=== PATIENT | female | born 1955 | race Caucasian/White ===

== ENCOUNTER → 2018-03-09 08:57 | Outpatient (CLI) | payer OTHER, SELFPAY ==
--- NOTE | 2018-03-09 09:04 | XR_ITS ---
XR foot LT min 3V HISTORY: ITS.REASON: LEFT FOOT PAIN ORDERING PHYSICIAN: Anum Robertson PATIENT AGE: 62 years COMPARISON: None FINDINGS: No fracture or dislocation. No lytic or blastic change. There is normal mineralization.. The joint spaces are well-preserved. No significant degenerative/arthritic changes. No erosive changes evident. IMPRESSION: Negative, no acute finding
== END ==
PROVIDERS: PCP Nurse Practitioner; Visit Provider Nurse Practitioner
DX: M79.672 Pain in left foot (principal)
CPT/HCPCS: 73630

== ENCOUNTER 2021-06-29 17:13 | Emergency (ER) | payer OTHER, SELFPAY ==
[2021-06-29 17:49] VITALS: BP 144/77; PULSE 82; RESP 20; TEMP 36.9; O2SAT 96; BMI 30.7
--- NOTE | 2021-06-29 17:59 | HMH.EDUTC ---
[facility] – [place] Disposition Clinical Impression: Pneumonia Disposition: Home, Self-Care Condition on Discharge: Good Instructions: Pneumonia-Adult Additional Instructions: Drink plenty of fluids. Take tylenol or ibuprofen for pain or fever. Take the medications as directed. Follow up with your regular doctor. GO TO THE ER FOR ANY WORSENING SYMPTOMS Quarantine until you know the results of your covid-19 test. If it is positive, the health department should call you and give you further instructions about your length of Quarantine and other thing. The cough medication (promethazine dm) will make you drowsy, so don't drive or operate heavy machinery after taking it. Follow up closely with your primary care physician. If you have any worsening symptoms, please return to the er at once. Prescriptions: Promethazine/Dextromethorphan [Promethazine-Dm Syrup] 5 ml PO Q6HP PRN #240 syrup PRN Reason: Cough Transmission Status: Received by [facility] Amoxicillin [Amoxicillin 875MG Tab] 875 mg PO Q12H #20 tab Transmission Status: Received by [facility] methylPREDNISolone [Medrol] 4 mg PO DIRECTED 6 Days #21 tab.ds.pk Transmission Status: Received by [facility] Benzonatate [Tessalon Perle 100mg Cap] 100 mg PO TIDP PRN #30 cap PRN Reason: Cough Transmission Status: Received by [facility] Azithromycin [Z-Mark 250mg Tab*] 250 mg PO UD DOSE PK #6 tab Transmission Status: Received by [facility] Referrals: Avery Finney MD [Primary Care Provider] - Time of Disposition: 19:32 Medical Decision Making - Medical Records Medical records reviewed: No: I reviewed the patient's medical records. - Brody Inquiry Pt receiving controlled substance: No Vital Signs: 06/29/21 17:49 06/29/21 18:56 Temperature 98.5 F 98.7 F Temperature Source Oral Pulse Rate 78 Pulse Rate [Left] 82 Respiratory Rate 20 22 Blood Pressure 146/83 H Blood Pressure [Right Arm] 144/77 H Blood Pressure Mean [Right Arm] 99 02 Sat by Pulse Oximetry 96 - Lab Data Lab results reviewed: Yes: I reviewed the patient's lab results. Lab Results 06/29/21 18:14: Strep Scn Rapid [facility] Negative Orders (Tests/Meds): ED MEDICATIONS Discontinued Medications Generic Name Dose Route Start Last Admin Trade Name Rudi PRN Reason Stop Dose Admin Ceftriaxone Sodium 1 gm 06/29/21 18:48 06/29/21 18:55 Ceftriaxone 1gm Vial IM 06/29/21 18:49 1 gm ONCE ONE Administration Lidocaine HCl 0 ml 06/29/21 18:48 06/29/21 18:55 Lidocaine 1% 5ml Pf Vial IM 06/29/21 18:49 2.5 ml ONCE ONE Administration ORDERS Category Date Time Status Covid-19 Nasal PCR ([facility]) Routine Lab 06/29/21 17:45 Received Strep Screen Confirmation Stat Micro 06/29/21 18:14 Received [facility] [place] HPI - General Stated complaint: not feeling good Time Seen by Provider: 06/29/21 18:00 Mode of Arrival: Ambulatory Source of Information: Patient Limitations: No Limitations Description of Symptoms (Recalled from Triage Doc. by RN): PT C/O LOSS OF TASTE AND SMELL, FEVER COUGH AND FATIGUE HEENT Symptoms (Recalled from RN notes): Yes (LOSS OF TASTE/SMELL) Resp Symptoms (Recalled from RN notes): Yes (COUGH) Skin Symptoms (Recalled from RN notes): No MS Symptoms (Recalled from RN notes): No Functional Status (Recalled from RN notes): FEVER AND FATIGUE - History of Present Illness Provider Complaint: She states that for the past week she has been feeling bad. She has had a cough, loss of sense of smell and low grade fever. - Related Data Previous Rx's Medication Instructions Recorded Amoxicillin [Amoxicillin 875MG 875 mg PO Q12H #20 tab 06/29/21 Tab] Azithromycin [Z-Mark 250mg Tab*] 250 mg PO UD DOSE PK #6 tab 06/29/21 Benzonatate [Tessalon Perle 100mg 100 mg PO TIDP PRN #30 cap 06/29/21 Cap] Promethazine/Dextromethorphan 5 ml PO Q6HP PRN #240 syrup 06/29/21 [Promethazine-Dm Syrup] methylPREDN
--- NOTE | 2021-06-29 18:10 | XR_ITS ---
PROCEDURE INFORMATION: Exam: XR Chest Exam date and time: 06/29/2021 6:10 PM Age: 65 years old Clinical indication: Patient HX: Cough, fever TECHNIQUE: Imaging protocol: XR of the chest. Views: 2 views. COMPARISON: No relevant prior studies available. FINDINGS: Lungs: Bilateral scattered airspace disease concerning for pneumonia. Pleural spaces: Unremarkable. No pleural effusion. No pneumothorax. Heart/Mediastinum: Unremarkable. No cardiomegaly. Bones/joints: Unremarkable. IMPRESSION: Moderate bilateral pneumonia.
[2021-06-29 18:56] VITALS: BP 146/83; PULSE 78; RESP 22; TEMP 37.1
[2021-06-29 20:14] LABS: UTC Strep Screen (Rapid) Negative (Negative)
--- NOTE | 2021-06-30 12:31 | PC.NURSE ---
PATIENT NOTIFIED OF POSITIVE COVID TEST AT THIS TIME
== END 2021-06-29 19:42 | disposition home or self-care (01) ==
PROVIDERS: Emergency Provider Nurse Practitioner Family; PCP Family Medicine
DX: J12.82 Pneumonia due to coronavirus disease 2019 (principal)
CPT/HCPCS: 71046; 87880; 96372; 99203; G0463; U0003

== ENCOUNTER 2021-09-23 07:59 | Day surgery (SDC) | payer OTHER, SELFPAY ==
[2021-09-23] VITALS (7 sets, daily range): BP systolic 147–163; BP diastolic 67–84; PULSE 55–62; RESP 16; TEMP 36.2–36.5; O2SAT 97–100; BMI 30.2
== END 2021-09-23 10:45 | disposition home or self-care (01) ==
LOC: OR 08:00
PROVIDERS: PCP Family Medicine; Visit Provider Ophthalmology
PROC: (CPT 66984; principal; 2021-09-23 10:00)
DX: H25.812 Combined forms of age-related cataract, left eye (principal); H02.831 Dermatochalasis of right upper eyelid; H02.834 Dermatochalasis of left upper eyelid; I10 Essential (primary) hypertension; Z79.899 Other long term (current) drug therapy
CPT/HCPCS: 66984; V2632

== ENCOUNTER → 2021-12-08 10:47 | Outpatient (CLI) | payer OTHER, SELFPAY | PROVIDERS: PCP Family Medicine; Visit Provider Ophthalmology | DX: Z01.812 Encounter for preprocedural laboratory examination (principal); U07.1 COVID-19 | CPT/HCPCS: C9803; U0003; U0005 ==

== ENCOUNTER 2022-01-06 08:48 | Day surgery (SDC) | payer SELFPAY ==
[2021-12-31 10:20] VITALS: BMI 30.7
[2022-01-06 09:56] VITALS: BP 180/74; PULSE 63; RESP 18; TEMP 36.6; O2SAT 98
[2022-01-06 11:51] VITALS: BP 139/75; PULSE 58; RESP 18; O2SAT 99
[2022-01-06 11:56] VITALS: BP 135/83; PULSE 53; RESP 18; O2SAT 99
[2022-01-06 12:01] VITALS: BP 138/80; PULSE 52; RESP 16; O2SAT 100
[2022-01-06 12:06] VITALS: BP 147/79; PULSE 53; RESP 16; O2SAT 100
[2022-01-06 12:09] VITALS: BP 153/82; PULSE 64; RESP 18; TEMP 36.1; O2SAT 93
== END 2022-01-06 12:19 | disposition home or self-care (01) ==
PROVIDERS: PCP Family Medicine; Visit Provider Ophthalmology
PROC: (CPT 66984; principal; 2022-01-06 11:00)
DX: H02.831 Dermatochalasis of right upper eyelid; H02.834 Dermatochalasis of left upper eyelid; I10 Essential (primary) hypertension; H25.811 Combined forms of age-related cataract, right eye
CPT/HCPCS: 66984; V2632

== ENCOUNTER 2024-08-10 12:38 | Outpatient (CLI) | payer MEDICARE, SELFPAY ==
--- NOTE | 2024-08-10 12:40 | MM_ITS ---
PROCEDURE INFORMATION: Exam: MG Bilateral Screening 3D Mammography Exam date and time: 08/10/2024 12:48 PM Age: 68 years old Clinical indication: Screening examination TECHNIQUE: Imaging protocol: Bilateral Screening tomosynthesis and 2D mammography including computer-aided detection (CAD) when performed. COMPARISON: No relevant prior studies available. FINDINGS: MAMMOGRAPHY: Breast composition: There are scattered areas of fibroglandular density. Mass: None. Architectural distortion: None. Calcifications: No suspicious calcifications. Asymmetric density: None. Skin thickening: None. Axillary adenopathy: None. IMPRESSION: No mammographic evidence of malignancy. Annual screening is recommended unless otherwise clinically indicated. ASSESSMENT: BI-RADS Category 1: Negative.
== END 2024-08-10 23:59 | disposition home or self-care (01) ==
LOC: RAD 12:38
PROVIDERS: PCP Family Medicine; Visit Provider Family Medicine
DX: Z12.31 Encounter for screening mammogram for malignant neoplasm of breast (principal); E11.9 Type 2 diabetes mellitus without complications
CPT/HCPCS: 77063; 77067

== ENCOUNTER 2025-02-18 14:23 | Emergency (ER) | payer MEDICARE, SELFPAY ==
[2025-02-18] VITALS (8 sets, daily range): BP systolic 144–193; BP diastolic 70–96; PULSE 62–94; RESP 11–20; TEMP 36.8; O2SAT 96–99; BMI 25.6
--- NOTE | 2025-02-18 14:32 | ECG_ITS ---
APPROVED REPORT Exam: Resting ECG HR:93 bpm ECG Measurements Heart Rate 93 AXES HI 154 P 32 QRSd 82 QRS 57 QT 353 T -5 QTc 403 Conclusion SINUS RHYTHM NONSPECIFIC ST & T-WAVE ABNORMALITY No STEMI Electronically signed by : REBEKAH NELSON, 02/19/2025 03:59:24
--- NOTE | 2025-02-18 14:57 | CT_ITS ---
PROCEDURE INFORMATION: Exam: CTA Neck With Contrast Exam date and time: 02/18/2025 3:21 PM Age: 69 years old Clinical indication: Stroke-like symptoms; Dizziness/giddiness; Additional info: Dizziness at rest hypertensive TECHNIQUE: Imaging protocol: Computed tomographic angiography of the neck with contrast. Exam focused on the cervical segments of the vasculature. 3D rendering (Not supervised by radiologist): MIP and/or 3D reconstructed images were created by the technologist. Radiation optimization: All CT scans at this facility use at least one of these dose optimization techniques: automated exposure control; mA and/or kV adjustment per patient size (includes targeted exams where dose is matched to clinical indication); or iterative reconstruction. Contrast material: ISOVUE; Contrast volume: 80 ml; Contrast route: INTRAVENOUS (IV); COMPARISON: CT HEAD/BRAIN WO CON 02/18/2025 3:20 PM FINDINGS: Right common carotid artery: No stenosis. No dissection or occlusion. Right internal carotid artery: No stenosis of the extracranial segment. No dissection or occlusion. Right external carotid artery: No occlusion or stenosis of the origin. Left common carotid artery: No stenosis. No dissection or occlusion. Left internal carotid artery: No stenosis of the extracranial segment. No dissection or occlusion. Left external carotid artery: No occlusion or stenosis of the origin. Right vertebral artery: No stenosis. No dissection or occlusion. Left vertebral artery: No stenosis. No dissection or occlusion. Soft tissues: Normal. No significant soft tissue swelling. Bones/joints: No acute fracture. IMPRESSION: No stenosis or occlusion. REFERENCES: NASCET CRITERIA. The degree of stenosis in the cervical segment of the internal carotid artery is based on NASCET criteria. Normal is no stenosis. Mild is less than 50% stenosis. Moderate is 50-69% stenosis. Severe is 70% to 99% stenosis. Total occlusion is no detectable patent lumen.
--- NOTE | 2025-02-18 14:57 | CT_ITS ---
PROCEDURE INFORMATION: Exam: CTA Head With Contrast, Arteriography Exam date and time: 02/18/2025 3:21 PM Age: 69 years old Clinical indication: Stroke-like symptoms; Dizziness/giddiness; Additional info: Dizziness at rest hypertensive TECHNIQUE: Imaging protocol: Computed tomographic angiography of the head with contrast. Exam focused on the arteries. 3D rendering (Not supervised by radiologist): MIP and/or 3D reconstructed images were created by the technologist. Radiation optimization: All CT scans at this facility use at least one of these dose optimization techniques: automated exposure control; mA and/or kV adjustment per patient size (includes targeted exams where dose is matched to clinical indication); or iterative reconstruction. Contrast material: ISOVUE; Contrast volume: 80 ml; Contrast route: INTRAVENOUS (IV); COMPARISON: CT HEAD/BRAIN WO CON 02/18/2025 3:20 PM FINDINGS: ANTERIOR CIRCULATION: Right internal carotid artery: Intracranial segment is patent with no significant stenosis. No aneurysm. Right middle cerebral artery: No occlusion or significant stenosis. No aneurysm. Right anterior cerebral artery: No occlusion or significant stenosis. No aneurysm. Left internal carotid artery: Intracranial segment is patent with no significant stenosis. No aneurysm. Left middle cerebral artery: No occlusion or significant stenosis. No aneurysm. Left anterior cerebral artery: No occlusion or significant stenosis. No aneurysm. POSTERIOR CIRCULATION: Right vertebral artery: No occlusion or significant stenosis. No aneurysm. Left vertebral artery: No occlusion or significant stenosis. No aneurysm. Basilar artery: No occlusion or significant stenosis. No aneurysm. Right posterior cerebral artery: No occlusion or significant stenosis. No aneurysm. Left posterior cerebral artery: No occlusion or significant stenosis. No aneurysm. Brain: No definite mass, mass effect, or midline shift. Cerebral ventricles: No ventriculomegaly. Bones/joints: Unremarkable. No acute fracture. Soft tissues: Unremarkable. IMPRESSION: No large vessel stenosis or occlusion.
--- NOTE | 2025-02-18 14:57 | CT_ITS ---
PROCEDURE INFORMATION: Exam: CT Head Without Contrast Exam date and time: 02/18/2025 3:20 PM Age: 69 years old Clinical indication: Stroke-like symptoms; Dizziness/giddiness; Additional info: Dizziness at rest TECHNIQUE: Imaging protocol: Computed tomography of the head without contrast. Radiation optimization: All CT scans at this facility use at least one of these dose optimization techniques: automated exposure control; mA and/or kV adjustment per patient size (includes targeted exams where dose is matched to clinical indication); or iterative reconstruction. Other technique: STROKE PROTOCOL was implemented. COMPARISON: No relevant prior studies available. FINDINGS: Brain: Central and cortical brain atrophy evident, appropriate for patient age. There is nonspecific periventricular low attenuation, likely microangiopathic disease. No acute intracranial hemorrhage. Cerebral ventricles: No ventriculomegaly. Paranasal sinuses: Visualized sinuses are unremarkable. No fluid levels. Mastoid air cells: Visualized mastoid air cells are well aerated. Bones: Unremarkable. No acute fracture. Soft tissues: Unremarkable. IMPRESSION: No acute intracranial abnormality. ASSESSMENT: ASPECTS ([facility] Stroke Program Early CT Score) is 10.
--- NOTE | 2025-02-18 15:00 | HMH.EDGENADL ---
Discharge Plan Disposition Patient Disposition: Home, Self-Care Chief Complaint: Dizziness Prescriptions Prescriptions: No Action biotin 800 MCG tablet 800 mcg PO DAILY ascorbic acid-ascorbate sodium 500 MG tablet,chewable 500 mg PO DAILY bisoprolol-hydrochlorothiazide 1 EACH tablet 1 each PO DAILY zinc 50 MG tablet 50 mg PO DAILY cholecalciferol (vitamin D3) 10 MCG capsule 10 mcg PO DAILY Referrals Follow up/Referrals: Peter Sheets MD [Primary Care Provider] - See instructions Activity Restrictions/Add. Instructions Additional Instructions/Restrictions: Call your family doctor to establish care for this visit to the emergency department and schedule follow-up within 48 hours to ensure improvement. If you have any worsening of your condition or any other concerning signs or symptoms, return to the emergency department or your primary care doctor for further evaluation. Talk to your family doctor in order to discuss echocardiography as well as CT angiogram of the chest and runoff to the upper extremities for further evaluation. Clinical Impressions Clinical Impression: Dizziness, Hypomagnesemia Print Language Print Language: Mohawk Discharge ED Provider: Chapin Mojica General Adult HPI <Tadeo Em MD - Last Filed: 02/18/25 16:04> General Chief complaint: Dizziness Stated complaint: dizziness vaginal itching Time Seen by Provider: 02/18/25 14:37 Mode of Arrival: Ambulatory Source of Information: Patient Description of Symptoms (Recalled from ER Triage Doc. by RN): Pt presents for evaluation of sudden onset of dizziness this afternoon. Pt states she had palpitations when this occurred and her blood pressure shot up . Pt states her BP was 200/90. 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 Pt states she is also a type 2 diabetic and her bgl at home was 199. History of Present Illness HPI narrative: Patient is a 69-year-old female with past medical history of hypertension recently off of medication due to good control who presents emergency department for evaluation of dizziness. Drank her coffee this morning she has not had intermittent palpitations and elevated blood pressure. She takes her blood pressure every morning and it is reportedly normal prior to this. She had a low blood pressure this morning prior to drinking her coffee. She has nonspecific dizziness. 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 Related Data Home Medications ?Medication ?Instructions ?Recorded ?Confirmed bisoprolol 10 1 each PO DAILY Blood Pressure 09/18/21 11/20/21 mg-hydrochlorothiazide 6.25 mg tablet cholecalciferol (vitamin D3) 10 10 mcg PO DAILY Supplement 09/18/21 11/20/21 mcg (400 unit) capsule zinc 50 mg tablet 50 mg PO DAILY Supplement 09/18/21 11/20/21 ascorbic acid-ascorbate sodium 500 mg PO DAILY Supplement 11/20/21 (vitamin C) 500 mg chewable tablet biotin 800 mcg tablet 800 mcg PO DAILY hair, nails 11/20/21 Allergies Allergy/AdvReac Type Severity Reaction Status Date / Time No Known Allergies Allergy Verified 06/29/21 17:52 PFS <Tadeo Em MD - Last Filed: 02/18/25 16:04> [facility] Disclaimer: The information contained in this section may have been updated after the patient was seen, as this information can be updated by other users. Social History Smoking Status: Never smoker second hand exposure: No alcohol intake: never current occupational status: employed Travel in the last 8 weeks: None household members: spouse housing: house current occupation: [employer] current occupational exposures/hazards: No caffeine: Yes Have you lived/traveled outside US in past 30 days?: No Contact w/someone who lives/traveled outside US past 30 days?: No Exposure to someone with infectious disease in past 14 days?: No Do you have a fever (greater than 100.4 F or 38 C)?: No Have you tested positive for COVID-19: No Exposed to someone with COVID-19 in past 14 days?: No Do you have a sore throat?: No Do you have a cough?: No Do you have any weakness?: No Do you have any diarrhea?: No Are you experiencing any unusual bleeding?: No Do you have any muscle aches/pain?: No Do you have any abdominal pain?: No Are you experiencing loss of taste or smell?: No Other Medical History Have you received the Flu Vaccine for this season: No Have you received the Pneumonia Vaccine: No <Tadeo Em MD - Last Filed: 02/18/25 16:04> ROS Obtained: Yes Systems reviewed as appropriate & no additional complaints except as documented Physical Exam <Tadeo Em MD - Last Filed: 02/18/25 16:04> General General appearance: alert and in no apparent distress Head Head exam: atraumatic and normocephalic Eye Eye exam: Present PERRL and EOMI ENT ENT exam: Present mucous membranes moist Neck Neck exam: Present normal inspection Chest Chest inspection: Present normal inspection and symmetric chest wall rise Respiratory Respiratory exam: Present normal lung sounds bilaterally; Absent respiratory distress Cardiovascular Cardiovascular exam: Present regular rate and normal rhythm Abdominal Exam Abdominal exam: Present soft; Absent tenderness Extremities Exam Extremities exam: Present normal inspection Neurological Exam Neurological exam: Present alert and oriented X3; Absent CN II-XII intact (Left-sided partial ptosis and partial left facial droop on the lower half with loss of nasolabial fold) or motor sensory deficit Psychiatric Psychiatric exam: Present normal affect Skin Skin exam: Present warm and dry Medical Decision Making <Tadeo Em MD - Last Filed: 02/18/25 16:04> Medical Records Screening: Per USPSTF and CDC recommendations, given the prevalence of disease in our region, it is our hospital?s policy to screen for HIV and viral Hepatitis for all patients aged 18 and over and those with ongoing risk factors. Brody Inquiry Pt receiving controlled substance: No Vital Signs: 02/18/25 14:33 02/18/25 14:45 02/18/25 15:00 Temperature 98.3 F Temperature Source Oral Pulse Rate 88 77 Pulse Rate [Right] 94 H Respiratory Rate 18 20 16 Blood Pressure 182/86 H 184/90 H Blood Pressure [Right Arm] 193/96 H Blood Pressure Mean [Right Arm] 128 Blood Pressure Source [Right Arm] Automatic Cuff Blood Pressure Position [Right Arm] Sitting 02 Sat by Pulse Oximetry 98 99 98 Oxygen Delivery Method Room Air Room Air Room Air 02/18/25 15:13 02/18/25 15:30 02/18/25 16:00 Temperature Temperature Source Pulse Rate 76 78 71 Pulse Rate [Right] Respiratory Rate 12 13 11 L Blood Pressure 160/83 H 157/73 H 144/70 H Blood Pressure [Right Arm] Blood Pressure Mean [Right Arm] Blood Pressure Source [Right Arm] Blood Pressure Position [Right Arm] 02 Sat by Pulse Oximetry 98 98 99 Oxygen Delivery Method Room Air Room Air Room Air 02/18/25 16:30 Temperature Temperature Source Pulse Rate 67 Pulse Rate [Right] Respiratory Rate 12 Blood Pressure 161/80 H Blood Pressure [Right Arm] Blood Pressure Mean [Right Arm] Blood Pressure Source [Right Arm] Blood Pressure Position [Right Arm] 02 Sat by Pulse Oximetry 96 Oxygen Delivery Method Room Air Lab Data Lab Results 02/18/25 15:10: WBC 8.8, RBC 4.55, Hgb 14.3, Hct 41.5, MCV 91.2, MCH 31.4 H, MCHC 34.5, RDW 12.1, Plt Count 286, MPV 10.7 H, Neut % (Auto) 73.2, Lymph % (Auto) 16.1, Bradley % (Auto) 8.5, Eos % (Auto) 1.4, Baso % (Auto) 0.3, Neut # (Auto) 6.4, Lymph # (Auto) 1.4, Bradley # (Auto) 0.7, Eos # (Auto) 0.1, Baso # (Auto) 0.0, Sodium 144, Potassium 4.1, Chloride 106, Carbon Dioxide 28, Anion Gap 14.1, BUN 12, Creatinine 0.80, Estimated Creat Clear 59, Estimated GFR 71, Est GFR ( Amer) 86, Glucose 140 H, Calcium 9.8, Magnesium 1.4 L, Total Bilirubin 1.2, AST 63 H, ALT 68, Alkaline Phosphatase 125, Troponin I < 0.01, Total Protein 7.7, Albumin 4.3, Globulin 3.4 H, Albumin/Globulin Ratio 1.3 02/18/25 15:10 02/18/25 15:10 Orders (Tests/Meds): ED MEDICATIONS Discontinued Medications Generic Name Dose Route Start Last Admin Trade Name Rudi PRN Reason Stop Dose Admin Magnesium Sulfate 2 gm in 50 mls @ 50 mls/hr 02/18/25 15:49 02/18/25 16:02 Magnesium Sulfate 2gm/50ml Premix IV 02/18/25 16:48 50 mls/hr ONCE ONE Administration Iopamidol 80 ml 02/18/25 15:20 02/18/25 15:21 Iopamidol-370 (76%);100ml Bottle IV 02/18/25 15:21 80 ml ONCE ONE Administration Magnesium Oxide 800 mg 02/18/25 15:49 02/18/25 16:02 Magnesium Oxide 400mg Tablet PO 02/18/25 15:50 800 mg ONCE ONE Administration Sodium Chloride 10 ml 02/18/25 15:20 02/18/25 15:21 Sodium Chloride 0.9% 10ml Syr (Rad Only) IV 02/18/25 15:21 10 ml ONCE ONE Administration Sodium Chloride 50 ml 02/18/25 15:20 02/18/25 15:20 0.9 % Sodium Chloride 50 Ml Vial IV 02/18/25 15:21 50 ml ONCE ONE Administration ORDERS Category Date Time Status CT angio head Stat Cat Scan 02/18/25 14:[address] angio neck Stat Cat Scan 02/18/25 14:[address] head/brain wo con Stat Cat Scan 02/18/25 14:57 Completed CBC w/Auto Diff [Complete Blood Count Auto Diff] Stat Lab 02/18/25 15:10 Completed CMP [Comprehensive Metabolic Panel] Stat Lab 02/18/25 15:10 Completed MG [Magnesium] Stat Lab 02/18/25 15:10 Completed Trop I [Troponin I] Stat Lab 02/18/25 15:10 Completed Troponin I Q3H Lab 02/18/25 19:00 Ordered Troponin I Q3H Lab 02/18/25 22:00 Ordered ECG Data Tracing #1: Independently interpreted by me rate is 93, rhythm is regular, axis is normal, no ST elevation in anatomical contiguous leads, QTc 403. Medical Decision Narrative: In summary patient is 69-year-old female past medical history described above presents emergency department for evaluation of nonspecific dizziness. Patient is hemodynamically stable nontoxic-appearing upon arrival, afebrile. Patient has a baseline neurological exam with no acute dynamic changes and are only remarkable for her residual from Olmstead's palsy. Differential diagnosis includes posterior circulation stroke, hypertensive emergency, metabolic derangement, among others. Patient retook her blood pressure medicine prior to arrival so we will defer emergent lowering of blood pressure for now. Workup will be conducted with hematologic labs noncontrasted CT scan of the head CTA of the head and neck. Initial hematologic labs reviewed by me and are remarkable for hypomagnesemia which will be repleted remainder of hematologic labs are nonactionable. CT imaging conducted and wet read negative for acute pathology formal read is pending at time as well as repeat evaluation at time of transfer of care to the oncoming physician, Dr. Mojica. <Chapin Mojica MD - Last Filed: 02/18/25 17:16> Vital Signs: 02/18/25 14:33 02/18/25 14:45 02/18/25 15:00 Temperature 98.3 F Temperature Source Oral Pulse Rate 88 77 Pulse Rate [Right] 94 H Respiratory Rate 18 20 16 Blood Pressure 182/86 H 184/90 H Blood Pressure [Right Arm] 193/96 H Blood Pressure Mean [Right Arm] 128 Blood Pressure Source [Right Arm] Automatic Cuff Blood Pressure Position [Right Arm] Sitting 02 Sat by Pulse Oximetry 98 99 98 Oxygen Delivery Method Room Air Room Air Room Air 02/18/25 15:13 02/18/25 15:30 02/18/25 16:00 Temperature Temperature Source Pulse Rate 76 78 71 Pulse Rate [Right] Respiratory Rate 12 13 11 L Blood Pressure 160/83 H 157/73 H 144/70 H Blood Pressure [Right Arm] Blood Pressure Mean [Right Arm] Blood Pressure Source [Right Arm] Blood Pressure Position [Right Arm] 02 Sat by Pulse Oximetry 98 98 99 Oxygen Delivery Method Room Air Room Air Room Air 02/18/25 16:30 Temperature Temperature Source Pulse Rate 67 Pulse Rate [Right] Respiratory Rate 12 Blood Pressure 161/80 H Blood Pressure [Right Arm] Blood Pressure Mean [Right Arm] Blood Pressure Source [Right Arm] Blood Pressure Position [Right Arm] 02 Sat by Pulse Oximetry 96 Oxygen Delivery Method Room Air Lab Data Lab Results 02/18/25 15:10: WBC 8.8, RBC 4.55, Hgb 14.3, Hct 41.5, MCV 91.2, MCH 31.4 H, MCHC 34.5, RDW 12.1, Plt Count 286, MPV 10.7 H, Neut % (Auto) 73.2, Lymph % (Auto) 16.1, Bradley % (Auto) 8.5, Eos % (Auto) 1.4, Baso % (Auto) 0.3, Neut # (Auto) 6.4, Lymph # (Auto) 1.4, Bradley # (Auto) 0.7, Eos # (Auto) 0.1, Baso # (Auto) 0.0, Sodium 144, Potassium 4.1, Chloride 106, Carbon Dioxide 28, Anion Gap 14.1, BUN 12, Creatinine 0.80, Estimated Creat Clear 59, Estimated GFR 71, Est GFR ( Amer) 86, Glucose 140 H, Calcium 9.8, Magnesium 1.4 L, Total Bilirubin 1.2, AST 63 H, ALT 68, Alkaline Phosphatase 125, Troponin I < 0.01, Total Protein 7.7, Albumin 4.3, Globulin 3.4 H, Albumin/Globulin Ratio 1.3 Orders (Tests/Meds): ED MEDICATIONS Discontinued Medications Generic Name Dose Route Start Last Admin Trade Name Freq PRN Reason Stop Dose Admin Magnesium Sulfate 2 gm in 50 mls @ 50 mls/hr 02/18/25 15:49 02/18/25 16:02 Magnesium Sulfate 2gm/50ml Premix IV 02/18/25 16:48 50 mls/hr ONCE ONE Administration Iopamidol 80 ml 02/18/25 15:20 02/18/25 15:21 Iopamidol-370 (76%);100ml Bottle IV 02/18/25 15:21 80 ml ONCE ONE Administration Magnesium Oxide 800 mg 02/18/25 15:49 02/18/25 16:02 Magnesium Oxide 400mg Tablet PO 02/18/25 15:50 800 mg ONCE ONE Administration Sodium Chloride 10 ml 02/18/25 15:20 02/18/25 15:21 Sodium Chloride 0.9% 10ml Syr (Rad Only) IV 02/18/25 15:21 10 ml ONCE ONE Administration Sodium Chloride 50 ml 02/18/25 15:20 02/18/25 15:20 0.9 % Sodium Chloride 50 Ml Vial IV 02/18/25 15:21 50 ml ONCE ONE Administration ORDERS Category Date Time Status CT angio head Stat Cat Scan 02/18/25 14:[address] angio neck Stat Cat Scan 02/18/25 14:[address] head/brain wo con Stat Cat Scan 02/18/25 14:57 Completed CBC w/Auto Diff [Complete Blood Count Auto Diff] Stat Lab 02/18/25 15:10 Completed CMP [Comprehensive Metabolic Panel] Stat Lab 02/18/25 15:10 Completed MG [Magnesium] Stat Lab 02/18/25 15:10 Completed Trop I [Troponin I] Stat Lab 02/18/25 15:10 Completed Troponin I Q3H Lab 02/18/25 19:00 Ordered Troponin I Q3H Lab 02/18/25 22:00 Ordered Medical Decision Narrative: In summary patient is 69-year-old female past medical history described above presents emergency department for evaluation of nonspecific dizziness. Patient is hemodynamically stable nontoxic-appearing upon arrival, afebrile. Patient has a baseline neurological exam with no acute dynamic changes and are only remarkable for her residual from Olmstead's palsy. Differential diagnosis includes posterior circulation stroke, hypertensive emergency, metabolic derangement, among others. Patient retook her blood pressure medicine prior to arrival so we will defer emergent lowering of blood pressure for now. Workup will be conducted with hematologic labs noncontrasted CT scan of the head CTA of the head and neck. Initial hematologic labs reviewed by me and are remarkable for hypomagnesemia which will be repleted remainder of hematologic labs are nonactionable. CT imaging conducted and wet read negative for acute pathology formal read is pending at time as well as repeat evaluation at time of transfer of care to the oncoming physician, Dr. Mojica. Galina: I assumed primary responsibility for this patient after signout from previous physician. I independently interpreted patient's workup, nonactionable CBC with normal hemoglobin. Chemistry nonactionable normal kidney function. Magnesium a little low, this was repleted IV and p.o. Troponin negative. Independent interpretation of CT imaging, patient has no acute intracranial hemorrhage. I dependently interviewed and evaluated patient, states she is feeling much better and currently symptomatic. She states that she drank a couple cups of coffee and then took her blood pressure medication afterward had not had any water today and then was feeling dizzy. Laid down on the couch for couple minutes and it resolved. Came in for further evaluation. Patient also states that she has been taking her blood pressure multiple times throughout the day, it is usually low 1 10-1 20 over 50s to 60s. Recommended that she continue not taking her blood pressure medication as I think this may be related to what happened today. Patient also states that she has elevated blood pressure in her right arm as compared to her left arm 20 mmHg generally and that also held true here. States that she is asymptomatic and she does have good pulses. It was recommended that she follow-up with family doctor regarding this visit to the emergency department and blood pressure differences in order to get echocardiography as well as CT angiogram of the chest and runoff to the upper extremities for further evaluation. Because patient at baseline without signs or symptoms of clinical decompensation, deemed appropriate for discharge. Results were relayed to patient who voiced understanding and were agreeable to outpatient management and follow up. I discussed my clinical impression with patient and answered all questions. At this time, the evidence for any other entities in the differential is insufficient to warrant any further testing or ED observation. This was explained as well. Advisory was given that persistent or worsening symptoms require further evaluation. I confirmed the understanding of this discussion. Critical Care <Tadeo Em MD - Last Filed: 02/18/25 16:04> Critical Care Time Critical Care Time: Yes Attestation: On 02/18/25, the high probability of a clinically significant, sudden or life threatening deterioration of the following system(s) required my full and direct attention, intervention and personal management. The time I documented below is in addition to time spent performing reported procedures but includes the following listed in this critical care notation. Total Time Total Critical Care Time: 35
[2025-02-18] MEDS: 0.9 % SODIUM CHLORIDE 50 ML VIAL IV (15:20)
[2025-02-18 15:21] LABS: Basophils % 0.3 % (0.1-2.0); Eosinophils # 0.1 K/mm3 (0.0-0.4); Eosinophils % 1.4 % (0.1-12.0); Hematocrit 41.5 % (37.0-47.0); Hemoglobin 14.3 g/dL (12.2-16.2); Lymphocytes # 1.4 K/mm3 (0.7-4.5); Lymphocytes % 16.1 % (10-50); Mean Corpuscular HGB Conc 34.5 g/dL (31.8-35.4); Mean Corpuscular Hemoglobin 31.4 pg (27.0-31.2); Mean Corpuscular Volume 91.2 fl (81-99); Mean Platelet Volume 10.7 fl (7.4-10.4); Monocytes # 0.7 K/mm3 (0.1-1.0); Monocytes % 8.5 % (1.7-9.3); Neutrophils # 6.4 K/mm3 (1.8-7.8); Neutrophils % 73.2 % (37.0-80.0); Platelet Count 286 K/mm3 (142-424); Red Blood Count 4.55 M/mm3 (4.20-5.40); Red Cell Distribution Width 12.1 % (11.5-17.5); White Blood Count 8.8 K/mm3 (4.8-10.8)
[2025-02-18] MEDS: IOPAMIDOL-370 (76%);100ML BOTTLE 80 ML IV (15:21)
[2025-02-18] MEDS: SODIUM CHLORIDE 0.9% 10ML SYR (RAD ONLY) 10 ML IV (15:21)
[2025-02-18 15:38] LABS: Chloride 106 mmol/L (98-107)
[2025-02-18 15:39] LABS: Albumin Level 4.3 g/dl (3.5-5.0); Potassium 4.1 mmoL/L (3.5-5.1); Sodium 144 mmol/L (136-145)
[2025-02-18 15:41] LABS: Blood Urea Nitrogen 12 mg/dl (7-17); Creatinine Clearance Estimated 59 mL/min (50-200); Estimated Glomerular Filt Rate 71 ml/min (>60); GFR (African American) 86 ML/MIN (>60)
[2025-02-18 15:42] LABS: Alanine Aminotransferase 68 U/L (12-78); Albumin/Globulin Ratio 1.3 (1.1-1.8); Alkaline Phosphatase 125 U/L (38-126); Anion Gap 14.1 mEq/L (5-15); Aspartate Amino Transferase 63 U/L (14-36); Bilirubin,Total 1.2 mg/dl (0.2-1.3); Calcium 9.8 mg/dl (8.4-10.2); Carbon Dioxide 28 mmol/L (22.0-30.0); Globulin 3.4 g/dL (1.3-3.2); Glucose 140 mg/dl (74-100); Magnesium 1.4 mg/dl (1.6-2.3); Total Protein,Serum 7.7 g/dl (6.3-8.2)
[2025-02-18] MEDS: MAGNESIUM OXIDE 400MG TABLET 800 MG PO (16:02)
[2025-02-18] MEDS: MAGNESIUM SULFATE IN WATER 2 GM/50 ML PIGGYBACK IV (16:02)
[2025-02-18 16:21] LABS: Troponin I < 0.01 ng/ml (0.00-0.034)
--- OUTSIDE RECORDS SUMMARY | 2025-02-22 20:03 | XMS_ITS ---
Author Organization Unknown TREATMENT PLAN Planned Care Start Date Provider Encounter for Check-up [id number] NATALY Sheets
== END 2025-02-18 17:37 | disposition home or self-care (01) ==
PROVIDERS: Emergency Medicine; Emergency Provider Emergency Medicine; PCP Family Medicine
DX: E83.42 Hypomagnesemia (principal); R42 Dizziness and giddiness; R00.2 Palpitations; E11.9 Type 2 diabetes mellitus without complications; I95.9 Hypotension, unspecified; G51.0 Bell's palsy
CPT/HCPCS: 70450; 70496; 70498; 80053; 83735; 84484; 85025; 93005; 96365; 99291; J3475; Q9967

== ENCOUNTER 2025-11-01 13:38 | Outpatient (CLI) | payer MEDICARE, SELFPAY ==
--- NOTE | 2025-11-01 13:41 | MM_ITS ---
PROCEDURE INFORMATION: Exam: MG Bilateral Screening 3D Mammography Exam date and time: 11/01/2025 1:44 PM Age: 70 years old Clinical indication: Screening examination TECHNIQUE: Imaging protocol: Bilateral Screening tomosynthesis and 2D mammography including computer-aided detection (CAD) when performed. COMPARISON: MG MM DIG SCREENING MAMM BI W/CAD 08/10/2024 12:48 PM FINDINGS: MAMMOGRAPHY: Breast composition: There are scattered areas of fibroglandular density. Mass: No suspicious masses. Architectural distortion: None. Calcifications: No suspicious calcifications. Asymmetric density: None. Skin thickening: None. Axillary adenopathy: None. IMPRESSION: No mammographic evidence of malignancy. Annual screening is recommended unless otherwise clinically indicated. ASSESSMENT: BI-RADS Category 1: Negative.
--- OUTSIDE RECORDS SUMMARY | 2025-11-01 13:55 | XMS_ITS | Clinical Summary ---
Author Organization [facility] OFF[facility] Address [address] [facility] [address] [place] [address] Care Team Providers Care Director Of Women'S Services Name Role Phone Unavailable Primary Care Provider Unavailabl e Social History Tobacco Use Types Packs/Day Years Used Date Smoking Tobacco: Never Assessed Comments Unknown Sex and Gender Information Value Date Recorded Sex Assigned at Not on file Legal Sex Female 3:10 AM EDT Gender Identity Not on file Sexual Orientation Not on file Plan of Treatment Health Maintenance Due Date Last Done Comments Annual Wellness Exam 1959 Hepatitis C Screening 1974 DTaP/TDaP/Td (1 - Tdap) 1975 Cologuard 2001 Colon Cancer Screening 2001 Colonoscopy 2001 FIT 2001 Sigmoidoscopy 2001 Virtual Colonography 2001 Pneumococcal Vaccine 50+ (1 of 1 - PCV) 2006 Zoster (1 of 2) 2006 Bone Density Screening 2021 COVID-19 Vaccine (1 - 2024-2 6 season) 2025 Influenza Vaccine (#1) 2025 Hepatitis B Vaccine Aged Out No longe r eligible based on patient's age to complete this topic Meningococcal B Vaccine Aged Out No l onger eligible based on patient's age to complete this topic
== END 2025-11-01 23:59 | disposition home or self-care (01) ==
LOC: RAD 13:38
PROVIDERS: PCP Family Medicine; Visit Provider Family Medicine
DX: Z12.31 Encounter for screening mammogram for malignant neoplasm of breast (principal); R92.323 Mammographic fibroglandular density, bilateral breasts
CPT/HCPCS: 77063; 77067